=== PATIENT | male | born 1970 | race Two or more races ===

== ENCOUNTER 2022-01-05 23:56 | Emergency (ER) | payer OTHER ==
[~2022-01-05] VITALS: Ht 182.9 cm; Wt 84.8 kg
[2022-01-06] MEDS ORDERED: TOPROL XL25 M1 (00:05)
[2022-01-06] MEDS ORDERED: CRESTOR40 MG PO (00:05)
[2022-01-06] MEDS ORDERED: PEPCID40 MG PO (06:06)
[2022-01-06] MEDS ORDERED: ZOFRAN8 MG PO (06:06)
== END 2022-01-06 06:11 ==
LOC: ER 23:56
DX: R10.13 Epigastric pain (principal); I10 Essential (primary) hypertension